=== PATIENT | female | born 1970 | race Caucasian/White ===

== ENCOUNTER 2018-03-16 09:37 | Emergency (ER) | payer MEDICAID ==
[~2018-03-16] VITALS: Ht 157.5 cm; Wt 68.0 kg
[~2018-03-16 09:37] MED LIST: SUMA100T PO
[2018-03-16] MEDS ORDERED: FLUT10.62 INH (09:49)
== END 2018-03-16 10:10 | disposition home or self-care (01) ==
LOC: ER 09:37
DX: J32.9 Chronic sinusitis, unspecified (principal); J45.909 Unspecified asthma, uncomplicated
CPT/HCPCS: 99281; A4663